=== PATIENT | male | born 1995 | race Two or more races ===

== ENCOUNTER 2019-07-22 14:22 | Emergency (ER) | payer OTHER ==
[2019-07-22 14:43] VITALS: BP 120/63
--- NOTE | 2019-07-22 17:13 | ED Physician Documentation ---
PD HPI URI - Stated complaint Stated Complaint: HEAD PX AND EYE PX - Chief complaint Chief Complaint: Neuro - History obtained from History obtained from: Patient - History of Present Illness Timing - onset: Today, Last night Timing duration: Days (09/01) Timing details: Gradual onset, Still present Associated symptoms: Chills, Nasal congestion, Rhinorrhea, Sore throat, Other (headache today). No: Fever, Productive cough, NVD Contributing factors: No: Travel (deployed to [place] recently and returned just over a month ago.), Immunocompromised Improves by: Rest. No: Medication (he did not try any medication today.) Similar symptoms before: No diagnosis (he has had occasional similar headaches intermittently, with feeling of pressure headache, associated with mild nausea and light sensitivity. Usually takes Ibuprofen and rests and is better. Had not sought out medical care for them. Gets headaches about every month or two. Current headache feels similar but also has URI symptoms since yesterday as well.) Recently seen: Not recently seen Review of Systems Constitutional: reports: Chills, Myalgias. denies: Fever Nose: reports: Congestion, Sinus pressure / pain Throat: reports: Sore throat (scratchy) Cardiac: denies: Chest pain / pressure Respiratory: denies: Dyspnea, Cough GI: reports: Nausea. denies: Abdominal Pain, Vomiting, Diarrhea Skin: denies: Rash, Lesions Neurologic: reports: Generalized weakness, Headache. denies: Focal weakness, Numbness, Difficulty speaking, Confused, Altered mental status, Head injury PD PAST MEDICAL HISTORY - Past Medical History Cardiovascular: None Respiratory: None Neuro: None (no diagnosed problems but he describes likely mild migraines intermittently, with OTC meds for them. ) Endocrine/Autoimmune: None - Past Surgical History Past Surgical History: No - Present Medications Home Medications: Ambulatory Orders Medication Instructions Recorded Confirmed Cetirizine [ZyrTEC] 10 mg PO DAILY #15 tablet 07/22/19 Ibuprofen [Motrin] 600 mg PO TID PRN #20 tab 07/22/19 Ondansetron Odt [Zofran] 4 mg TL Q6H PRN #10 tablet 07/22/19 dexAMETHasone [Decadron] 4 mg PO DAILY #5 tablet 07/22/19 - Allergies Allergies/Adverse Reactions: Allergies Allergy/AdvReac Type Severity Reaction Status Date / Time No Known Drug Allergies Allergy Verified 07/22/19 14:40 - Social History Does the pt smoke?: No Smoking Status: Never smoker Does the pt drink ETOH?: No Does the pt have substance abuse?: No - Immunizations Immunizations are current?: Yes PD ED PE NORMAL - Vitals Vital signs reviewed: Yes - General General: Alert and oriented X 3, No acute distress, Well developed/nourished - HEENT HEENT: Ears normal, Moist mucous membranes, Pharynx benign - Neck Neck: Supple, no meningeal sign, No adenopathy - Cardiac Cardiac: RRR, No murmur - Respiratory Respiratory: Clear bilaterally - Abdomen Abdomen: Soft, Non tender - Derm Derm: Normal color, Warm and dry - Extremities Extremities: No deformity - Neuro Neuro: Alert and oriented X 3, No motor deficit, Normal speech Results - Vitals Vitals: Vital Signs - 24 hr 07/22/19 14:40 Temperature 36.6 C Heart Rate 71 Respiratory 17 Rate Blood Pressure 120/63 O2 Saturation 98 Oxygen O2 Source Room air PD MEDICAL DECISION MAKING - ED course Complexity details: considered differential (seems like URI symptoms with either mild viral syndrome headache or some element of migraine, which is sounds like he gets intermittently. No clinical suspicion at this time of meningitic process. ), d/w patient Departure - Departure Disposition: 01 Home, Self Care Clinical Impression: Acute headache Qualifiers: Headache type: unspecified Intractability: not intractable Qualified Code(s): R51 - Headache Upper respiratory infection Qualifiers: URI type: unspecified URI Qualified Code(s): J06.9 - Acute upper respiratory infection, unspecified Condition: Stable Record reviewed to determine appropriate education?: Yes Instructions: ED Upper Resp Infec No Abx Tx, ED Cephalgia Unspecified Follow-Up: [facility] [Provider Group] Prescriptions: Cetirizine [ZyrTEC] 10 mg PO DAILY #15 tablet dexAMETHasone [Decadron] 4 mg PO DAILY #5 tablet Ibuprofen [Motrin] 600 mg PO TID PRN #20 tab PRN Reason: Pain Ondansetron Odt [Zofran] 4 mg TL Q6H PRN #10 tablet PRN Reason: Nausea / Vomiting Comments: Sounds like you are developing a head cold and so I would presume you have some congestion and scratchy throat and may develop some cough and last for 3 to 5 days or so. You can use ibuprofen 3 times a day if needed for aches fevers and pains. This can help with your headache as well. Ondansetron if needed for persistent nausea. If you are still feeling ill and to tomorrow as such, also continue the Decadron steroid anti-inflammatory for several days this will help reduce symptoms in the throat and head and the headache as well. Use cetirizine antihistamine for congestion and you may have some runny nose or congestion for even a week or 2 sometimes. I think the headache component is both from the viral illness and that would be common enough. He may be having an element of a migraine type headache given your headaches you have had in the past. Recheck if not improved well over the next few days and return sooner if worsening in headache or vomiting or other concerns. Discharge Date/Time: 07/22/19 18:33
[2019-07-22] MEDS ORDERED: CHERRY SYRUP 10 ML UDC PO ONE (18:05)
[2019-07-22] MEDS ORDERED: CETIRIZINE 10 MG TABLET PO STA (18:05)
[2019-07-22] MEDS ORDERED: ONDANSETRON ODT 4 MG TABLET TL STA (18:05)
[2019-07-22] MEDS ORDERED: DEXAMETHASONE 10 MG/ML VIAL PO STA (18:05)
[2019-07-22] MEDS ORDERED: IBUPROFEN 600 MG TABLET PO STA (18:05)
== END 2019-07-22 18:33 | disposition home or self-care (01) ==
LOC: ED 14:22
DX: J06.9 Acute upper respiratory infection, unspecified (principal); R51 Headache; R11.0 Nausea
CPT/HCPCS: 99283; 99284; A9270; Q0162